=== PATIENT | male | born 1950 | race Caucasian/White ===

== ENCOUNTER → 2024-01-23 10:33 | Outpatient (REF) | payer MEDICARE, OTHER, SELFPAY ==
[2024-01-23 12:53] LABS: % Basophils 0.9 % (0-2); % Eosinophils 1.3 % (0-6); % Immature Granulocytes 0.4 % (0-0.5); % Lymphocytes 15.5 % (20.5-51.1); % Monocytes 12.1 % (1.7-9.3); % Neutrophils 69.8 % (42.2-75.2); Absolute Basophils 0.1 10^3/uL (0-0.2); Absolute Eosinophils 0.1 10^3/uL (0-0.7); Absolute Lymphocytes 1.1 10^3/uL (1.2-3.4); Absolute Monocytes 0.8 10^3/uL (0.1-0.6); Absolute Neutrophils 4.9 10^3/uL (1.4-6.5); Hematocrit 45.1 % (39.0-52.0); Mean Corp Hgb Conc. 33.3 g/dL (33.0-37.0); Mean Corpuscular Hgb 29.3 pg (27.0-31.0); Mean Corpuscular Volume 88.1 fL (80.0-94.0); Mean Platelet Volume 10.5 fL (7.4-10.4); Nucleated Red Blood Cells % 0 % (-); Platelet Count 191 10^3/uL (130-400); Red Blood Cell Count 5.12 10^6/uL (4.70-6.10); Red Cell Dist. Width 14.6 % (11.5-14.5)
[2024-01-23 13:55] LABS: ALT (SGPT) 22 U/L (0-50); AST (SGOT) 26 U/L (17-59); Albumin 4.4 g/dl (3.5-5.0); Alkaline Phosphatase 88 U/L (38-126); Blood Urea Nitrogen 19 mg/dl (9-20); Calcium 10.1 mg/dl (8.4-10.2); Carbon Dioxide 29 mmol/L (22-30); Chloride 102 mmol/L (98-107); Glucose 97 mg/dl (70-99); Potassium 4.8 mmol/L (3.5-5.1); Sodium 137 mmol/L (135-145); Total Bilirubin 0.6 mg/dl (0.2-1.3); Total Protein 7.2 g/dl (6.3-8.2); eGFR > 60.00
== END ==
LOC: HWLAB 10:33
PROVIDERS: ATTENDING PHYSICIAN Internal Medicine
DX: R13.19 Other dysphagia (principal); R13.10 Dysphagia, unspecified; R63.4 Abnormal weight loss; K21.9 Gastro-esophageal reflux disease without esophagitis
CPT/HCPCS: 36415; 80053; 84443; 85025

== ENCOUNTER → 2024-02-01 06:37 | Day surgery (SDC) | payer MEDICARE, OTHER, SELFPAY | LOC: GI 06:37 | PROVIDERS: ATTENDING PHYSICIAN Internal Medicine Gastroenterology; FAMILY PHYSICIAN Obstetrics & Gynecology | DX: K22.2 Esophageal obstruction (principal); K31.7 Polyp of stomach and duodenum; K57.10 Diverticulosis of small intestine without perforation or abscess without bleeding; K44.9 Diaphragmatic hernia without obstruction or gangrene; R63.4 Abnormal weight loss; R13.10 Dysphagia, unspecified | CPT/HCPCS: 43249; 43239; 88305 ==

== ENCOUNTER → 2024-10-31 12:03 | Outpatient (REF) | payer MEDICARE, OTHER, SELFPAY ==
[2024-10-31 16:01] LABS: Erythrocyte Sed Rate 6 mm/hour (0-20)
[2024-10-31 16:35] LABS: PSA, Total - Screen 2.41 ng/ml (0.0-4.0)
[2024-10-31 17:56] LABS: Uric Acid 6.1 mg/dl (3.5-8.5)
== END ==
LOC: HWLAB 12:03
PROVIDERS: ATTENDING PHYSICIAN Internal Medicine
DX: N40.1 Benign prostatic hyperplasia with lower urinary tract symptoms (principal); M10.9 Gout, unspecified; Z12.5 Encounter for screening for malignant neoplasm of prostate
CPT/HCPCS: 36415; 84550; 85652; G0103

== ENCOUNTER 2025-01-11 13:59 | Emergency (ER) | payer MEDICARE, OTHER, SELFPAY ==
[2025-01-11 14:18] VITALS: BP 114/64
[2025-01-11 14:30] LABS: % Eosinophils 1.5 % (0-6); % Immature Granulocytes 0.2 % (0-0.5); % Lymphocytes 17.1 % (20.5-51.1); % Monocytes 6.5 % (1.7-9.3); % Neutrophils 73.7 % (42.2-75.2); Absolute Basophils 0.1 10^3/uL (0-0.2); Absolute Eosinophils 0.1 10^3/uL (0-0.7); Absolute Lymphocytes 0.9 10^3/uL (1.2-3.4); Absolute Monocytes 0.3 10^3/uL (0.1-0.6); Absolute Neutrophils 3.8 10^3/uL (1.4-6.5); Hemoglobin 14.4 g/dL (13.0-18.0); Mean Corp Hgb Conc. 32.7 g/dL (33.0-37.0); Mean Corpuscular Hgb 29.1 pg (27.0-31.0); Mean Corpuscular Volume 88.9 fL (80.0-94.0); Mean Platelet Volume 10.5 fL (7.4-10.4); Nucleated Red Blood Cells % 0 % (-); Platelet Count 178 10^3/uL (130-400); Red Blood Cell Count 4.95 10^6/uL (4.70-6.10); Red Cell Dist. Width 14.3 % (11.5-14.5); White Blood Cell Count 5.2 10^3/uL (4.8-10.8)
[2025-01-11 15:36] LABS: ALT (SGPT) 30 U/L (0-50); AST (SGOT) 30 U/L (17-59); Albumin 4.5 g/dl (3.5-5.0); Alkaline Phosphatase 78 U/L (38-126); Blood Urea Nitrogen 19 mg/dl (9-20); Calcium 9.6 mg/dl (8.4-10.2); Carbon Dioxide 24 mmol/L (22-30); Chloride 102 mmol/L (98-107); Glucose 218 mg/dl (70-99); Potassium 4.6 mmol/L (3.5-5.1); Sodium 138 mmol/L (135-145); Total Bilirubin 0.7 mg/dl (0.2-1.3); Total Protein 6.7 g/dl (6.3-8.2); eGFR > 60.00
[2025-01-11 16:18] VITALS: BP 109/61
[2025-01-11 16:40] VITALS: BMI 25.0
--- NOTE | 2025-01-11 16:40 | ED.GENMED ---
History of Present Illness
<Renny Smith PA-C - Last Filed: 01/11/25 18:41>
General
Chief Complaint: Fainting/Passed Out
Source: patient
Exam Limitations: none
Time Seen by Provider: 01/11/25 16:30
History of Present Illness
History of Present Illness:
74-year-old male presents complaining of passing out episode. He was kneeling down cleaning scrubs and stood up too quickly he got lightheaded and passed out. He hit his head on the brick wall on the way down. He complains of facial pain and
headache. He denies nausea or neck pain. He is not anticoagulated. No preceding chest pain or shortness of breath. No other complaints
Phy Exam
<Renny Smith PA-C - Last Filed: 01/11/25 18:41>
Physical Exam
Physical Exam:
General: Well-appearing male no acute respiratory distress
HEENT: Normocephalic abrasions noted to the forehead nose upper lip and chin these are superficial. Pupils equal round reactive to light extraocular's are intact
Heart: Regular rate and rhythm
Lungs: Clear no wheeze
Musculoskeletal exam: No significant tenderness about the cervical spine. Good range of motion all extremities
Neurologic exam: Alert and oriented x 3 no facial asymmetry good strength to the upper and lower extremity
Course
<SELMA Lawson Last Filed: 01/11/25 18:41>
Orders/Labs/Results
Orders:
Orders
01/11/25 14:13
EKG [Electrocardiogram (*1)] Urgent
Reason for Study: Syncope
01/11/25 14:14
EKG- Treatment ONCE
01/11/25 14:24
CMP [Comprehensive Metabolic Panel] Urgent
Complete Blood Count/With Diff Urgent
01/11/25 16:39
CT Cervical Spine W/o Iv Contr Urgent
Comment:
Reason For Exam: fall
CT Facial Bones W/o Iv Contras Urgent
Comment:
Reason For Exam: fall
CT Head W/o Iv Contrast Urgent
Comment:
Reason For Exam: fall
Abnormal Lab Results
01/11/25
14:24
MCHC 32.7 L g/dL
(33.0-37.0)
MPV 10.5 H fL
(7.4-10.4)
Absolute Lymphs (auto) 0.9 L 10^3/uL
(1.2-3.4)
Lymphocytes % 17.1 L %
(20.5-51.1)
Glucose 218 H mg/dl
(70-99)
01/11/25 14:24
01/11/25 14:24
Vital Signs
Initial and Last Documented VS:
Initial Vital Signs
Temp Pulse Resp BP Pulse Ox
98.5 F 70 18 114/64 96
01/11/25 14:18 01/11/25 14:18 01/11/25 14:18 01/11/25 14:18 01/11/25 14:18
Last Documented Vital Signs
Temp Pulse Resp BP Pulse Ox
98.5 F 70 18 116/76 96
01/11/25 14:18 01/11/25 16:18 01/11/25 16:18 01/11/25 19:20 01/11/25 19:20
<Ronal Yancey PA-C - Last Filed: 01/11/25 20:00>
Orders/Labs/Results
Orders:
Orders
01/11/25 14:13
EKG [Electrocardiogram (*1)] Urgent
Reason for Study: Syncope
01/11/25 14:14
EKG- Treatment ONCE
01/11/25 14:24
CMP [Comprehensive Metabolic Panel] Urgent
Complete Blood Count/With Diff Urgent
01/11/25 16:39
CT Cervical Spine W/o Iv Contr Urgent
Comment:
Reason For Exam: fall
CT Facial Bones W/o Iv Contras Urgent
Comment:
Reason For Exam: fall
CT Head W/o Iv Contrast Urgent
Comment:
Reason For Exam: fall
Abnormal Lab Results
01/11/25
14:24
MCHC 32.7 L g/dL
(33.0-37.0)
MPV 10.5 H fL
(7.4-10.4)
Absolute Lymphs (auto) 0.9 L 10^3/uL
(1.2-3.4)
Lymphocytes % 17.1 L %
(20.5-51.1)
Glucose 218 H mg/dl
(70-99)
01/11/25 14:24
01/11/25 14:24
Vital Signs
Initial and Last Documented VS:
Initial Vital Signs
Temp Pulse Resp BP Pulse Ox
98.5 F 70 18 114/64 96
01/11/25 14:18 01/11/25 14:18 01/11/25 14:18 01/11/25 14:18 01/11/25 14:18
Last Documented Vital Signs
Temp Pulse Resp BP Pulse Ox
98.5 F 70 18 116/76 96
01/11/25 14:18 01/11/25 16:18 01/11/25 16:18 01/11/25 19:20 01/11/25 19:20
Chandanlt;Renny Smith PA-C - Last Filed: 01/11/25 18:41>
MDM/Problems Addressed
Differential Diagnosis Includes:
Patient stood up too quickly got lightheaded and had a syncopal episode. Consider arrhythmia but EKG triage shows sinus rhythm without ischemic changes. Labs through triage failed to demonstrate any anemia or electrolyte abnormality. Given the
head trauma, CT of the face head and cervical spine
<Ronal Yancey PA-C - Last Filed: 01/11/25 20:00>
*Radiology
Radiology exam reviewed: radiology read reviewed
*Critical Care Note
Total Time (30-74mins, 75-104mins- exclusive of procedures): Not Applicable
<Ronal Yancey PA-C - Last Filed: 01/11/25 20:00>
Patient Management
Escalation/DeEscalation of care consider admission/obs:
7 PM: Patient received in signout pending CT scan results. CT scans ultimately came back without any acute intracranial, cervical spine or facial injury. Suspect orthostasis is the most likely diagnosis. Encourage patient that when he does get up
from sitting or laying position to standing that he does so slowly. If symptoms are to persist or recur patient may need follow-up with cardiology to rule out cardiogenic cause. Both patient and family expressed understanding. Stable for
discharge home
ED Attending Note
<Renny Smith PA-C - Last Filed: 01/11/25 18:41>
-
Portions of this chart may have been created with voice recognition software.� Occasional wrong word or��sound alike� substitutions may have occurred due to the inherent limitations of voice recognition software.
Discharge Plan
Departure
Patient Disposition: Home (Routine Discharge)
Date of Disposition: 01/11/25
Time of Disposition: 19:12
Patient with high blood pressure during this ER visit?: No
Discharge Problem:
Contusion
Instructions: Syncope (Fainting) (DC)
Referrals:
Monica Julien MD [Family Provider] -
Activity Restrictions/Additional Instructions:
Rest. You may use ibuprofen or Tylenol for pain. Return if needed otherwise follow up with PMD.
Interventions
Interventions:
*Risk Screen - Suicide Last Done: 01/11/25 14:18
*General Assessment Last Done: 01/11/25 14:18
*Neglect/Abuse Screening Last Done: 01/11/25 16:40
*ED- Fall Risk Assessment Last Done: 01/11/25 16:40
*ED COVID-19 Vaccine History Last Done: 01/11/25 16:40
*Nursing Disposition Last Done: 01/11/25 19:34
ED- Cardiac Assessment Last Done: 01/11/25 16:40
ED- Neurological Assessment Last Done: 01/11/25 16:40
Discharge Date and Time
Discharge Date/Time: 01/11/25 19:34
Print Language: [id number]
[2025-01-11 16:44] VITALS: BP 110/67
[2025-01-11 17:00] VITALS: BP 117/70
[2025-01-11 19:20] VITALS: BP 116/76
== END 2025-01-11 19:34 | disposition home or self-care (01) ==
LOC: EMR 13:59
PROVIDERS: EMERGENCY PHYSICIAN Emergency Medicine; FAMILY PHYSICIAN Internal Medicine
DX: S00.83XA Contusion of other part of head, initial encounter (principal); W19.XXXA Unspecified fall, initial encounter; R55 Syncope and collapse
CPT/HCPCS: 99285; 70450; 70486; 72125; 80053; 85025; 93005